=== PATIENT | male | born 1955 ===

== ENCOUNTER 2021-07-01 15:23 | Inpatient (IN) ==
[2021-07-01] MEDS ORDERED: THIAMINE 200 MG/2 ML VIAL IV STA (15:57)
[2021-07-01] MEDS ORDERED: SODIUM CHLORIDE 0.9% 1,000 ML IV STA (15:57)
[2021-07-01 16:04] LABS: Basophils % 0.2 % (0.0-0.8); Eosinophils % 0.2 % (0.00-10.9); Hemoglobin 14.6 GM/DL (14.0-18.0); Immature Granulocytes % 0.5 %; Immature Granulocytes Absolute 0.03 #; Lymphocytes # 1.2 10*3/uL (1.4-4.0); Lymphocytes % 18.9 % (21.2-54.2); Mean Corpuscular HGB Conc 36.5 GM/DL (32-36); Mean Corpuscular Volume 91.5 FL (87-102); Mean Platelet Volume 9.1 FL (9.6-12.0); Neutrophils % 62.2 % (38.7-73.9); Platelet Count 122 T/CUMM (130-400); Red Blood Count 4.37 MC/CUMM (3.8-5.5); Red Cell Distribution Width 12.4 % (9.3-17.3); White Blood Count 6.1 T/CUMM (4-12)
[2021-07-01 16:09] LABS: PT Patient Result 11.6 SECS (10.5-12.0); Partial Thromboplastin Time 27.6 SECS (23.8-32.1)
[2021-07-01 16:26] LABS: Atypical Lymphocytes Few; Eosinophils 1 % (0-10); Lymphocytes 21 % (20-55); Platelet Estimate Adequate; Segmented Neutrophils 60 % (50-85); Total Cells Counted 100
[2021-07-01 16:31] LABS: Albumin 3.6 G/DL (3.4-5.0); CKMB % 0.3 %; Calcium 8.8 MG/DL (8.5-10.1); Osmolality,Calculated 243.5 MOS/KG (273-304); Potassium 3.3 MMOL/L (3.5-5.1); Thyroid Stimulating Hormone 2.34 uIU/ml (0.358-3.74); Total Protein 8.1 G/DL (6.4-8.2)
[2021-07-01 16:35] LABS: Bilirubin,Urine Negative (Negative); Blood, Urine Small mg/dL (Negative); Glucose,Urine (UA) 50 mg/dL (Negative); Ketones,Urine Negative (Negative); Mucus,Urine Occasional /LPF (Occasional); Nitrite,Urine Negative (Negative); Protein,Urine Negative; RBC,Urine <1 /HPF (0-4); Urine Appearance CLEAR (Clear); Urine Color Yellow (Yellow); Urine Specific Gravity 1.005 (1.001-1.035)
[2021-07-01 16:54] LABS: Barbiturates Screen,Urine Negative (Negative); Benzodiazepines Screen,Urine Negative (Negative); Cannabinoid Screen,Urine Negative (Negative); Opiate Screen,Urine Negative (Negative); Phencyclidine Screen,Urine Negative (Negative)
[2021-07-01] MEDS ORDERED: MAGNESIUM SULF RIDER 2 GM/50 ML PREMIX IV STA (17:58)
[2021-07-01] MEDS ORDERED: DEXTROSE 50% 25 GM/50 ML VIAL IV PRN (18:36)
[2021-07-01] MEDS ORDERED: LACTULOSE 20 GM/30 ML UDCUP PO PRN (18:36)
[2021-07-01] MEDS ORDERED: GLUCAGON 1 MG VIAL IM PRN (18:36)
[2021-07-01] MEDS ORDERED: guaiFENesin/DM ER 600-30 MG TABLET PO PRN (18:36)
[2021-07-01] MEDS ORDERED: ALBUTEROL/IPRATROPIUM 3 ML NEB RESP TX PRN (18:36)
[2021-07-01] MEDS ORDERED: NICOTINE 21 MG/24 HR PATCH TRANSDERM PRN (18:36)
[2021-07-01] MEDS ORDERED: ALUMINUM/MAGNES/SIMETH MAX STR 30 ML UDCUP PO PRN (18:36)
[2021-07-01] MEDS ORDERED: ONDANSETRON 4 MG/2 ML VIAL IV PRN (18:36)
[2021-07-01] MEDS ORDERED: SODIUM CHLORIDE 0.9% 1,000 ML IV SCH (19:00)
[2021-07-01] MEDS: POTASSIUM CHLORIDE RIDER 10 MEQ/100 ML PREMIX IV SCH (19:45)
[2021-07-01] MEDS ORDERED: hydrALAZINE 20 MG/1 ML VIAL IV PRN (20:06)
[2021-07-01] MEDS: DEXTROSE 5% NACL 0.45% 1,000 ML IV SCH (20:35)
[2021-07-01] MEDS ORDERED: POTASSIUM CHLORIDE RIDER 10 MEQ/100 ML PREMIX IV SCH (23:30)
[2021-07-01] MEDS: INSULIN LISPRO 100 UNIT/ML SUBCUT SCH (23:38)
[2021-07-02] MEDS: POTASSIUM CHLORIDE RIDER 10 MEQ/100 ML PREMIX IV SCH (00:16)
[2021-07-02] MEDS: DOCUSATE SODIUM 100 MG CAPSULE PO SCH ×3 (00:16→21:52)
[2021-07-02] MEDS: ENOXAPARIN 40 MG/0.4 ML SYRINGE SUBCUT SCH ×2 (00:16→21:53)
[2021-07-02] MEDS: PANTOPRAZOLE 40 MG VIAL IV SCH ×3 (00:17→21:56)
[2021-07-02] MEDS: MULTIVITAMIN INJ 10 ML in DEXTROSE 5% 1,000 ML IV SCH (01:30)
[2021-07-02] MEDS: LORazepam 2 MG/1 ML VIAL IV PRN ×2 (03:00→21:52)
[2021-07-02 05:42] LABS: Basophils % 0.2 % (0.0-0.8); Eosinophils % 0.5 % (0.00-10.9); Hematocrit 38.1 VOL% (42.0-52.0); Hemoglobin 13.8 GM/DL (14.0-18.0); Immature Granulocytes % 0.3 %; Immature Granulocytes Absolute 0.02 #; Lymphocytes # 1.4 10*3/uL (1.4-4.0); Lymphocytes % 23.6 % (21.2-54.2); Mean Corpuscular HGB Conc 36.2 GM/DL (32-36); Mean Corpuscular Volume 93.4 FL (87-102); Mean Platelet Volume 9.7 FL (9.6-12.0); Monocytes % 20.5 % (1.7-12.7); Neutrophils % 54.9 % (38.7-73.9); Red Blood Count 4.08 MC/CUMM (3.8-5.5); Red Cell Distribution Width 12.4 % (9.3-17.3); White Blood Count 5.8 T/CUMM (4-12)
[2021-07-02 05:48] LABS: Platelet Count 94 T/CUMM (130-400)
[2021-07-02 06:04] LABS: Lymphocytes 21 % (20-55); Platelet Estimate Decreased; Segmented Neutrophils 58 % (50-85); Total Cells Counted 100
[2021-07-02 06:05] LABS: Atypical Lymphocytes Few
[2021-07-02 06:13] LABS: Risk Ratio 2.54; VLDL Cholesterol 21.4 MG/DL
[2021-07-02 08:07] LABS: Albumin 3.2 G/DL (3.4-5.0); Bilirubin,Total 1.8 MG/DL (0.20-1.00); Calcium 8.4 MG/DL (8.5-10.1); Osmolality,Calculated 259.1 MOS/KG (273-304); Potassium 3.1 MMOL/L (3.5-5.1); Total Protein 7.2 G/DL (6.4-8.2)
[2021-07-02] MEDS: INSULIN LISPRO 100 UNIT/ML SUBCUT SCH ×3 (08:58→17:23)
[2021-07-02] MEDS ORDERED: PANTOPRAZOLE 40 MG TABLET PO SCH (09:00)
[2021-07-02] MEDS: THIAMINE 200 MG/2 ML VIAL IV SCH (10:12)
[2021-07-02] MEDS: CYANOCOBALAMIN 1000 MCG/1 ML VIAL IM SCH (10:13)
[2021-07-02] MEDS: FOLIC ACID INJ 1 MG in SYRINGE 1 EACH IV SCH (10:42)
[2021-07-02] MEDS: DEXT 5% NACL 0.45% KCL 40 MEQ 40 MEQ/1,000 ML BAG IV SCH (12:36)
[2021-07-03] MEDS: INSULIN LISPRO 100 UNIT/ML SUBCUT SCH ×3 (03:20→11:22)
[2021-07-03] MEDS: DEXT 5% NACL 0.45% KCL 40 MEQ 40 MEQ/1,000 ML BAG IV SCH (04:27)
[2021-07-03] MEDS: MULTIVITAMIN INJ 10 ML in DEXTROSE 5% 1,000 ML IV SCH (05:17)
[2021-07-03 06:54] LABS: Basophils % 0.2 % (0.0-0.8); Eosinophils # 0.1 10*3/uL (0.0-0.87); Eosinophils % 1.5 % (0.00-10.9); Hemoglobin 12.4 GM/DL (14.0-18.0); Immature Granulocytes % 0.4 %; Immature Granulocytes Absolute 0.02 #; Lymphocytes # 1.2 10*3/uL (1.4-4.0); Lymphocytes % 26.2 % (21.2-54.2); Mean Corpuscular HGB Conc 35.4 GM/DL (32-36); Mean Corpuscular Volume 95.1 FL (87-102); Mean Platelet Volume 9.9 FL (9.6-12.0); Monocytes % 17.8 % (1.7-12.7); Neutrophils % 53.9 % (38.7-73.9); Platelet Count 92 T/CUMM (130-400); Red Blood Count 3.68 MC/CUMM (3.8-5.5); Red Cell Distribution Width 12.5 % (9.3-17.3); White Blood Count 4.6 T/CUMM (4-12)
[2021-07-03 07:25] LABS: Albumin 2.9 G/DL (3.4-5.0); Bilirubin,Total 1.3 MG/DL (0.20-1.00); Calcium 8.3 MG/DL (8.5-10.1); Osmolality,Calculated 263.8 MOS/KG (273-304); Potassium 3.7 MMOL/L (3.5-5.1); Total Protein 6.4 G/DL (6.4-8.2)
[2021-07-03 07:28] LABS: Anisocytosis 1+; Band Neutrophils 2 % (0-10); Eosinophils 2 % (0-10); Lymphocytes 29 % (20-55); Macrocytosis 1+; Platelet Estimate Decreased; Segmented Neutrophils 56 % (50-85); Total Cells Counted 100
[2021-07-03] MEDS ORDERED: MAGNESIUM SULF RIDER 2 GM/50 ML PREMIX IV PRN (08:16)
[2021-07-03] MEDS ORDERED: MAGNESIUM SULF RIDER 4 GM/100 ML PREMIX IV PRN (08:16)
[2021-07-03] MEDS: PANTOPRAZOLE 40 MG VIAL IV SCH (11:07)
[2021-07-03] MEDS: CYANOCOBALAMIN 1000 MCG/1 ML VIAL IM SCH (11:07)
[2021-07-03] MEDS: FOLIC ACID INJ 1 MG in SYRINGE 1 EACH IV SCH (11:08)
[2021-07-03] MEDS: THIAMINE 200 MG/2 ML VIAL IV SCH (11:08)
[2021-07-03] MEDS: DOCUSATE SODIUM 100 MG CAPSULE PO SCH (11:08)
[2021-07-03 13:00] VITALS: BP 151/80
[2021-07-03] MEDS: DEXTROSE 5% NACL 0.45% 1,000 ML IV SCH (13:21)
== END 2021-07-03 17:55 | disposition home or self-care (01) | DRG 896 ==
LOC: N.ED 15:23 → SUATTDRO 18:36 → N.EDINP 18:36 → N.2W 20:57
PROVIDERS: ADMIT Internal Medicine; ATTEND Internal Medicine